=== PATIENT | female | born 1970 | race Caucasian/White ===

== ENCOUNTER 2017-05-17 15:28 | Emergency (ER) | payer OTHER ==
[~2017-05-17] VITALS: Ht 177.8 cm; Wt 127.0 kg
[2017-05-17 15:56] LABS: ABSOLUTE BASOPHIL COUNT 0.1 /CUMM (0.0-0.2); ABSOLUTE EOSINOPHIL COUNT 0.1 /CUMM (0.0-0.7); ABSOLUTE LYMPH COUNT 1.4 /CUMM (1.2-3.4); ABSOLUTE MONOCYTE COUNT 0.5 /CUMM (0.10-0.60); BASOPHIL % 0.9 % (0.0-2.0); EOSINOPHIL % 0.4 % (0-5); GRANULOCYTE % 85.2 % (42.2-75.2); HEMATOCRIT 40.3 % (37-47); MEAN CORPUSCULAR HGB 29.6 PG (27.0-31.0); MEAN CORPUSCULAR VOLUME 87.3 FL (81.0-99.0); MEAN PLATELET VOLUME 7.8 FL (7.4-10.4); PLATELET COUNT 238 /CUMM (130-400); RBC DISTRIBUTION WIDTH 13.4 % (11.5-14.5); RED BLOOD CELL CT 4.61 /CUMM (4.20-5.40); WHITE BLOOD CELL COUNT 14.1 /CUMM (4.8-10.8)
--- NOTE | 2017-05-17 16:26 | ED GI/GU/ABDOMINAL COMPLAINT ---
See Addendum History of Present Illness General Chief Complaint: Abdominal Pain/Flank Pain Stated Complaint: ABD PAIN Source: patient Exam Limitations: no limitations Vital Signs & Intake/Output Vital Signs & Intake/Output Vital Signs Date Time Temp Pulse Resp B/P B/P Pulse O2 O2 Flow FiO2 Mean Ox Delivery Rate 05/17 2101 99.7 98 18 126/61 95 Room Air 05/174 102.0 05/17 2030 100.6 05/17 1955 102.0 05/17 191 101.9 05/17 1909 101.9 85 18 138/84 98 05/17 1821 Room Air 05/17 1531 99.0 127 15 142/98 97 Room Air Room Air ED Intake and Output 05/18 0000 05/17 1200 Intake Total 1360 Output Total 500 Balance 860 Intake, IV 1000 Intake, Oral 360 Output, Urine 500 Patient 280 lb Weight Weight Reported by Patient Measurement Method Allergies Coded Allergies: naproxen (STOMACH PAIN 05/17/17) Reconcile Medications Ondansetron HCl (Zofran) 4 MG TABLET 1 TAB PO Q6-8P PRN nausea Oxycodone HCl/Acetaminophen (Percocet 5-325 MG Tablet) 5 MG-325 MG TABLET 1 TAB PO Q4-6 PAIN Triage Note: PT TO ED FOR C/C OF SHARP ABD PAIN THAT STARTED LAST NIGHT AFTER PT TOOK ALEVE. ALSO REPORTS THAT SHE HAS SOME NAUSEA, DENIES SYMPTOMS BUT REPORTS SHE HAS THE FEELING LIKE SHE NEEDS TO MOVE HER BOWELS BUT IS UNABLE TO. LBM TODAY "BUT VERY SMALL". PT TACHYCARDIC IN TRIAGE 120'130'S. Triage Nurses Notes Reviewed? yes ? N Is pt currently ? No Onset: Gradual Duration: constant Timing: recent history Quality/Severity: sharpness, severe, stabbing Severity Numbers: 7 Location: right lower quadrant, suprapubic Radiation: no radiation HPI: Patient is a 47-year-old female with an unremarkable past medical history since emergency neck proximal 1 AM last night while sleeping patient was woken up with the acute onset of suprapubic and right lower quadrant abdominal pain. Patient initially had concerns of constipation where last bowel movement was over 48 hours ago tried [id number] laxatives and stool softeners with no bowel movement production patient this morning had persistent nausea and pain however she was able tolerate by mouth nona fina and toes with no change in symptoms. Patient does take NSAIDs on a regular medication for headaches and carpal tunnel however denies any epigastric pain. Denies any fevers chills chest pain shortness of breath dysuria hematuria vaginal bleeding or discharge. (Walter Okeefe) Past History Travel History Traveled to [place] past 21 day No Medical History Any Pertinent Medical History? none Neurological: NONE EENT: NONE Cardiovascular: NONE Respiratory: NONE Gastrointestinal: NONE Hepatic: NONE Renal: NONE Musculoskeletal: NONE Psychiatric: NONE Endocrine: NONE Blood Disorders: NONE Cancer(s): NONE MICA PASTER/Reproductive: NONE Surgical History Surgical History: tubal ligation Psychosocial History What is your primary language Paraguayan Tobacco Use: Quit >30 days ago ETOH Use: occasional use Illicit Drug Use: denies illicit drug use Family History Hx Contributory? No (Walter Okeefe) Review of Systems Review of Systems Constitutional: Reports: no symptoms. EENTM: Reports: no symptoms. Respiratory: Reports: no symptoms. Cardiovascular: Reports: no symptoms. GI: Reports: see HPI, abdominal pain. Genitourinary: Reports: no symptoms. Musculoskeletal: Reports: no symptoms. Skin: Reports: no symptoms. Neurological/Psychological: Reports: no symptoms. Hematologic/Endocrine: Reports: no symptoms. Immunologic/Allergic: Reports: no symptoms. All Other Systems: Reviewed and Negative (Walter Okeefe) Physical Exam Physical Exam General Appearance: mild distress, obese Head: atraumatic Eyes: Bilateral: normal appearance. Ears, Nose, Throat, Mouth: moist mucous membrane Neck: normal inspection Respiratory: normal breath sounds, chest non-tender Cardiovascular: tachycardia Peripheral Pulses: 2+ radial (R) Gastrointestinal: normal bowel sounds, RIGHT LOWER QUADRANT AND SUPRAPUBIC PAIN Back: normal inspection Extremities: normal range of motion Neurologic/Psych: no motor/sensory deficits Skin: intact, normal color Comments: Abdomen-no right upper quadrant pain or epigastric pain no rebound tenderness no peritoneal signs Core Measures ACS in differential dx? No Sepsis Present: No Sepsis Focused Exam Completed? No (Walter Okeefe) Progress Differential Diagnosis: AAA, AMI, appendicitis, biliary colic, bowel obstruction , colon cancer, cholecystitis, diverticulitis, endometritis, esophageal varices, gastritis, hepatitis, hernia, hemorrhoids, ischemic bowel, inflamm bowel dis, kidney stone, ovarian cyst, ovarian torsion, pancreatitis, PID/cervicitis, peptic ulcer, PUD/GERD, perforated viscous, SBO, UTI/pyelo Plan of Care: Orders Procedure Date/time Status Regular Diet 05/18 B Active Add-on Test (ER Only) 05/17 2043 Active Add-on Test (ER Only) 05/17 1650 Active TROPONIN LEVEL 05/17 1545 Complete MONOSPOT TEST 05/17 1545 Complete EKG 05/17 1535 Active URINALYSIS 05/17 1534 Complete COMPREHENSIVE METABOLIC PANEL 05/17 1534 Complete CBC WITHOUT DIFFERENTIAL 05/17 1534 Complete Laboratory Tests 05/17/17 1710: Urine Color YEL, Urine Clarity HAZY H, Urine pH 7.5, Ur Specific [place] 1.020, Urine Protein NEG, Urine Ketones NEG, Urine Nitrite NEG, Urine Bilirubin NEG, Urine Urobilinogen 0.2, Ur Leukocyte Esterase SMALL H, Ur Microscopic SEDIMENT EXAMINED, Urine RBC 1-3, Urine WBC 15-25 H, Ur Epithelial Cells FEW, Urine Bacteria FEW H, Urine Mucus RARE, Urine Hemoglobin NEG, Urine Glucose NEG 05/17/17 1545: Anion Gap 14, Estimated GFR > 60, BUN/Creatinine Ratio 12.9, Glucose 115 H, Calcium 9.3, Total Bilirubin 0.3, AST 15, ALT 35, Alkaline Phosphatase 73, Troponin I < 0.01, Total Protein 6.8, Albumin 4.0, Globulin 2.8, Albumin/ Globulin Ratio 1.4, CBC w Diff NO MAN DIFF REQ, RBC 4.61, MCV 87.3, MCH 29.6, RDW 13.4, MPV 7.8, Gran % 85.2 H, Lymphocytes % 9.7 L, Monocytes % 3.8, Eosinophils % 0.4, Basophils % 0.9, Absolute Granulocytes 12.0 H, Absolute Lymphocytes 1.4, Absolute Monocytes 0.5, Absolute Eosinophils 0.1, Absolute Basophils 0.1, PUBS MCHC 34.0, Infectious [place] Titer NEGATIVE Patient after morphine did have mild relief of symptoms however she requested additional pain relief 2 MG morphine was ordered CT scan was resulted in which I discussed results with patient and family for concerns of uterine fibroid I STRONGLY advised patient to follow up with established HEALTH CARE COORDINATOR for further evaluation treatment, upon discharge patient looks well no apparent distress and will comply discharge instructions and was able tolerate by mouth Diagnostic Imaging: Viewed by Me: CT Scan. Radiology Impression: acute abnormality Initial ED EKG: SINUS TACHYCARDIA 118 BPM, Comments: PATIENT: CHARLENE SOLANO PRESENT AGE: 47 PATIENT ACCOUNT NO: [id number] : 69 LOCATION: [facility] ORDERING PHYSICIAN: Walter TREVIÑO SERVICE DATE: 05/17/17 EXAM TYPE: CAT - CT ABD & PELVIS W IV CONTRAST EXAMINATION: CT ABDOMEN AND PELVIS WITH CONTRAST CLINICAL INFORMATION: Right lower quadrant, suprapubic pain COMPARISON: None TECHNIQUE: Multidetector volumetric imaging was performed of the abdomen and pelvis following IV administration of 94 mL of Optiray 320 intravenous contrast. Sagittal and coronal reformatted images were obtained on the technologist's workstation. DLP: 1544 mGy-cm FINDINGS: LUNG BASES: The visualized lung bases are unremarkable. LIVER, GALLBLADDER, AND BILIARY TREE: The liver is normal in size, shape, and attenuation. No focal hepatic lesion or biliary ductal dilatation is present. The gallbladder is unremarkable with no evidence of radiopaque gallstones, gallbladder wall thickening, or obvious pericholecystic inflammatory changes. PANCREAS: Unremarkable. SPLEEN: The spleen measures up to 13.5 cm. ADRENAL GLANDS: Unremarkable. KIDNEYS AND URETERS: The kidneys are normal in size, shape, and attenuation. No hydronephrosis, hydroureter, or calculi seen. No perinephric stranding. BLADDER: Unremarkable. GASTROINTESTINAL TRACT: There are no dilated loops of small or large bowel. The appendix is normal. No intra-abdominal free air. ABDOMINAL WALL: No significant hernia is appreciated. LYMPH NODES: Normal. VASCULAR: Unremarkable. PELVIC VISCERA: The uterus is bulky in appearance measuring approximately 10.1 x 6.6 x 8.5 cm. Multiple fibroid masses are suspected. There is a small amount of free fluid within the pelvis, within physiologic range. The ovaries are unremarkable. OSSEOUS STRUCTURES: Unremarkable. IMPRESSION: 1. Suspect fibroid uterus. This could be further characterized by dedicated nonemergent pelvic ultrasound. 2. Normal appendix. 3. No acute intra-abdominal or pelvic findings. 4. Mildly prominent spleen. DICTATED BY: Patrica Watson MD DATE/TIME DICTATED:05/17/171746 [employer] NETWORK ENGINEER:JUAN RAMON DATE/TIME TRANSCRIBED:05/17/171746 (Kristine TREVIÑO,Walter) Departure Departure Disposition: HOME OR SELF CARE Condition: Stable Clinical Impression Primary Impression: Uterine fibroid Secondary Impressions: Pelvic pain Referrals: Lena PAREDES,Matt Cornelius Patient Has No Primary Care Dr (PCP/Family) Additional Instructions: As discussed continue over the counter ibuprofen, begin the prescription of Percocet for breakthrough pain relief, on Thursday follow-up with HEALTH CARE COORDINATOR Dr. Stewart to establish further evaluation treatment of your symptoms, if symptoms worsen return to emergency room. Prescriptions waiting at [facility] Begin the prescription Zofran for nausea Follow-up with [facility] practice to establish a doctor this week Departure Forms: Customer Survey General Discharge Information Prescriptions: Current Visit Scripts Oxycodone HCl/Acetaminophen (Percocet 5-325 MG Tablet) 1 TAB PO Q4-6 #15 TAB Ondansetron HCl (Zofran) 1 TAB PO Q6-8P PRN nausea #10 TAB (Walter Okeefe) PA/SECOND FLOOR OPERATOR Co-Sign Statement Statement: ED Attending supervision documentation- [] I saw and evaluated the patient. I have also reviewed all the pertinent lab results and diagnostic results. I agree with the findings and the plan of care as documented in the PA's/SECOND FLOOR OPERATOR's documentation. [x] I have reviewed the ED Record and agree with the PA's/SECOND FLOOR OPERATOR's documentation. [] Additions or exceptions (if any) to the PAs/SECOND FLOOR OPERATOR's note and plan are summarized below: [] (Sidney PAREDES,Juan Cornelius) PA/SECOND FLOOR OPERATOR Co-Sign Statement Statement: ED Attending supervision documentation- [] I saw and evaluated the patient. I have also reviewed all the pertinent lab results and diagnostic results. I agree with the findings and the plan of care as documented in the PA's/SECOND FLOOR OPERATOR's documentation. [X] I have reviewed the ED Record and agree with the PA's/SECOND FLOOR OPERATOR's documentation. [] Additions or exceptions (if any) to the PAs/SECOND FLOOR OPERATOR's note and plan are summarized below: [] (Arlette PAREDES,Keily)
--- NOTE | 2017-05-17 18:01 | CT SCAN REPORT ---
EXAMINATION: CT ABDOMEN AND PELVIS WITH CONTRAST CLINICAL INFORMATION: Right lower quadrant, suprapubic pain COMPARISON: None TECHNIQUE: Multidetector volumetric imaging was performed of the abdomen and pelvis following IV administration of 94 mL of Optiray 320 intravenous contrast. Sagittal and coronal reformatted images were obtained on the technologist's workstation. DLP: 1544 mGy-cm FINDINGS: LUNG BASES: The visualized lung bases are unremarkable. LIVER, GALLBLADDER, AND BILIARY TREE: The liver is normal in size, shape, and attenuation. No focal hepatic lesion or biliary ductal dilatation is present. The gallbladder is unremarkable with no evidence of radiopaque gallstones, gallbladder wall thickening, or obvious pericholecystic inflammatory changes. PANCREAS: Unremarkable. SPLEEN: The spleen measures up to 13.5 cm. ADRENAL GLANDS: Unremarkable. KIDNEYS AND URETERS: The kidneys are normal in size, shape, and attenuation. No hydronephrosis, hydroureter, or calculi seen. No perinephric stranding. BLADDER: Unremarkable. GASTROINTESTINAL TRACT: There are no dilated loops of small or large bowel. The appendix is normal. No intra-abdominal free air. ABDOMINAL WALL: No significant hernia is appreciated. LYMPH NODES: Normal. VASCULAR: Unremarkable. PELVIC VISCERA: The uterus is bulky in appearance measuring approximately 10.1 x 6.6 x 8.5 cm. Multiple fibroid masses are suspected. There is a small amount of free fluid within the pelvis, within physiologic range. The ovaries are unremarkable. OSSEOUS STRUCTURES: Unremarkable. IMPRESSION: 1. Suspect fibroid uterus. This could be further characterized by dedicated nonemergent pelvic ultrasound. 2. Normal appendix. 3. No acute intra-abdominal or pelvic findings. 4. Mildly prominent spleen.
[2017-05-17] MEDS ORDERED: PERCOCET 5-3251 EACH PO (18:26)
[2017-05-17] MEDS ORDERED: ZOFRAN4 M2 PO (18:28)
[2017-05-17 21:01] VITALS: BP 126/61
== END 2017-05-17 21:15 ==
LOC: ERH 15:28
PROVIDERS: Emergency Medicine
DX: D25.9 Leiomyoma of uterus, unspecified (principal)
CPT/HCPCS: 74177; 81001; 93005; 93010; 96374; 96375; 96376; J2405